=== PATIENT | male | born 1960 | race Caucasian/White ===

== ENCOUNTER 2024-11-30 12:36 | Inpatient (IN) ==
[2024-11-30 13:46] LABS: Basophils # (Auto) 0.02 K/mcL (0.00-0.30); Basophils % (Auto) 0.2 % (0.0-2.0); Eosinophils # (Auto) 0.01 K/mcL (0.00-0.70); Eosinophils % (Auto) 0.1 % (0.0-7.0); Hematocrit 50.6 % (40.1-51.0); Hemoglobin 16.6 g/dL (13.7-17.5); Lymphocytes # (Auto) 0.93 K/mcL (1.50-4.80); Lymphocytes % (Auto) 8.4 % (15.5-49.0); Mean Corpuscular HGB Conc 32.8 g/dL (31.0-36.0); Monocytes # (Auto) 0.73 K/mcL (0.10-0.90); Monocytes % (Auto) 6.6 % (1.0-12.0); Neutrophils % (Auto) 84.6 % (38.0-78.0); Platelet Count 259 K/mcL (140-440); RBC 5.62 M/mcL (4.63-6.08); WBC 11.0 K/mcL (4.5-11.0)
[2024-11-30] MEDS: 0.9 % SODIUM CHLORIDE 1,000 ML IV ONE (13:56)
[2024-11-30 14:00] LABS: ALT/SGPT 95 U/L (<40); AST/SGOT 223 U/L (<40); Albumin 4.2 gm/dL (3.2-5.2); Albumin/Globulin Ratio 1.5 (1.0-2.3); Alkaline Phosphatase 82 U/L (39-117); Anion Gap 15.0 (8.0-16.0); Bilirubin,Total 0.7 mg/dL (0.1-1.0); Blood Urea Nitrogen 26 mg/dL (8-23); Calcium 9.9 mg/dL (8.6-10.4); Carbon Dioxide 24 mmol/L (22-30); Chloride 107 mmol/L (96-108); Globulin 2.8 gm/dL (2.2-3.7); Glucose 131 mg/dL (70-105); Potassium 3.9 mmol/L (3.3-5.1); Sodium 146 mmol/L (133-145)
[2024-11-30] MEDS: 0.45 % SODIUM CHLORIDE 1,000 ML IV SCH (14:17)
[2024-11-30] MEDS ORDERED: MAGNESIUM HYDROXIDE 30 ML ORAL.SUSP PO PRN (17:22)
[2024-11-30] MEDS ORDERED: ONDANSETRON 4 MG/2 ML VIAL IV PRN (17:22)
[2024-11-30] MEDS: DEXTROSE 5%-1/2NS 1,000 ML IV SCH (17:49)
[2024-11-30] MEDS: 0.9 % SODIUM CHLORIDE 10 ML SYRINGE IV SCH (20:39)
[2024-11-30] MEDS: SENNOSIDES 1 TABLET PO SCH (20:39)
[2024-12-01 06:29] LABS: ALT/SGPT 66 U/L (<40); AST/SGOT 133 U/L (<40); Albumin 3.0 gm/dL (3.2-5.2); Albumin/Globulin Ratio 1.5 (1.0-2.3); Alkaline Phosphatase 56 U/L (39-117); Anion Gap 7.0 (8.0-16.0); Bilirubin,Direct 0.3 mg/dL (<0.3); Bilirubin,Total 0.7 mg/dL (0.1-1.0); Blood Urea Nitrogen 16 mg/dL (8-23); Calcium 8.5 mg/dL (8.6-10.4); Carbon Dioxide 27 mmol/L (22-30); Chloride 107 mmol/L (96-108); Globulin 2.0 gm/dL (2.2-3.7); Glucose 115 mg/dL (70-105); Phosphorous 1.5 mg/dL (2.5-4.5); Potassium 3.3 mmol/L (3.3-5.1); Sodium 141 mmol/L (133-145); Triglycerides 68 mg/dL (<150); Uric Acid 5.4 mg/dL (2.5-8.0)
[2024-12-01 08:34] LABS: Estimated Average Glucose(eAG) 126 mg/dL; Hemoglobin A1C 6.0 % Hgb (4.0-6.0)
[2024-12-01] MEDS: DEXTROSE 5%-1/2NS W/20MEQ KCL 1,000 ML IV SCH (09:04)
[2024-12-01] MEDS: POTASSIUM PHOSPHATE 40 MEQ in DEXTROSE 5% IN WATER 500 ML IV ONE (09:06)
[2024-12-01] MEDS: ENOXAPARIN 40 MG/0.4 ML SYRINGE SQ SCH (09:07)
[2024-12-01] MEDS: ACETAMINOPHEN 325 MG TABLET PO PRN (13:41)
[2024-12-02 07:31] LABS: ALT/SGPT 84 U/L (<40); AST/SGOT 108 U/L (<40); Albumin 3.0 gm/dL (3.2-5.2); Albumin/Globulin Ratio 1.4 (1.0-2.3); Alkaline Phosphatase 61 U/L (39-117); Anion Gap 8.0 (8.0-16.0); Bilirubin,Direct 0.2 mg/dL (<0.3); Bilirubin,Total 0.5 mg/dL (0.1-1.0); Blood Urea Nitrogen 12 mg/dL (8-23); Calcium 8.6 mg/dL (8.6-10.4); Carbon Dioxide 25 mmol/L (22-30); Chloride 107 mmol/L (96-108); Globulin 2.2 gm/dL (2.2-3.7); Glucose 105 mg/dL (70-105); Phosphorous 2.3 mg/dL (2.5-4.5); Potassium 4.1 mmol/L (3.3-5.1); Sodium 140 mmol/L (133-145); Triglycerides 49 mg/dL (<150); Uric Acid 3.2 mg/dL (2.5-8.0)
[2024-12-03 05:52] LABS: ALT/SGPT 90 U/L (<40); AST/SGOT 79 U/L (<40); Albumin 3.2 gm/dL (3.2-5.2); Albumin/Globulin Ratio 1.4 (1.0-2.3); Alkaline Phosphatase 66 U/L (39-117); Anion Gap 8.0 (8.0-16.0); Bilirubin,Direct 0.2 mg/dL (<0.3); Bilirubin,Total 0.4 mg/dL (0.1-1.0); Blood Urea Nitrogen 14 mg/dL (8-23); Calcium 9.1 mg/dL (8.6-10.4); Carbon Dioxide 27 mmol/L (22-30); Chloride 104 mmol/L (96-108); Globulin 2.3 gm/dL (2.2-3.7); Glucose 100 mg/dL (70-105); Phosphorous 2.9 mg/dL (2.5-4.5); Potassium 4.1 mmol/L (3.3-5.1); Sodium 139 mmol/L (133-145); Triglycerides 65 mg/dL (<150); Uric Acid 3.4 mg/dL (2.5-8.0)
[2024-12-03] MEDS ORDERED: IOPAMIDOL 100 ML BOTTLE IV ONE (09:31)
[2024-12-03 10:40] LABS: Creatine Kinase 622 U/L (24-195)
== END 2024-12-03 13:40 | DRG 641 ==
LOC: ED 12:36 → MEDSUR 17:11
PROVIDERS: ADMIT Internal Medicine; ATTEND Internal Medicine